=== PATIENT | male | born 1990 | race Hispanic/Latino ===

== ENCOUNTER 2018-01-31 22:49 | Emergency (ER) | payer SELFPAY ==
[2018-01-31] MEDS ORDERED: NA CHLORIDE 0.9% 1,000 ML ONE (23:45)
[2018-02-01 00:01] LABS: Absolute Lymphocytes (CBC) 3.8 K/uL (0.7-4.9); Absolute Monocytes 0.8 K/uL (0.1-1.3); Absolute Neutrophil 3.6 K/uL (1.8-8.0); Eosinophils % 3.9 % (0-4.4); Hematocrit 43.5 % (39.6-49.0); Lymphocytes % 44.6 % (15.3-44.8); MCH 30.1 pg (27.0-35.0); MCV 90.1 fL (80-100); MPV 9.7 fL (7.6-11.3); Monocytes % 9.1 % (3.3-12.3); RBC Red Blood Cell Count 4.83 M/uL (4.33-5.43)
[2018-02-01 00:10] LABS: Bicarbonate 28 mEq/L (21-31); Glucose Level 115 mg/dL (65-120); Lipase 29 U/L (22-51); Potassium 3.7 mEq/L (3.6-5.0); Sodium Level 138 mEq/L (135-145)
[2018-02-01 00:17] LABS: ALT/SGPT 58 IU/L (10-60); AST/SGOT 45 IU/L (10-42); Albumin 4.3 g/dL (3.2-5.5); Alkaline Phosphatase 55 IU/L (42-121); Amylase Level 88 U/L (28-100); BUN Blood Urea Nitrogen 11 mg/dL (6-20); Bilirubin Direct < 0.1 mg/dL (0-0.2); Bilirubin Total 0.4 mg/dL (0.3-1.2); Glomerular Filtration Rate > 90 mL/min (=/>90); Protein, Total 7.7 g/dL (6.0-8.3)
[2018-02-01 01:29] LABS: Urine Bacteria <20 /HPF (NONE SEEN); Urine Culture Reflex Order NOT NEEDED; Urine RBC <5 /HPF (NONE SEEN)
--- NOTE | 2018-02-01 01:41 | ER ---
Nurse's Notes [facility] Name: Sandra Gutierrez Age: 27 yrs Sex: Male : 1990 Arrival Date: 01/31/2018 Time: 22:52 Bed 6 Private MD: Diagnosis: Left flank pain Presentation: 01/31 22:50 Presenting complaint: Patient states: that for the past 2 days he has been having left fc sided abd pain but denies any nausea, vomiting or diarrhea. Last bm was this am. Transition of care: patient was not received from another setting of care. Onset of symptoms was January 29, 2018. Care prior to arrival: None. 22:50 Method Of Arrival: Ambulatory fc 22:50 Acuity: CANDICE 3 fc Historical: - Allergies: 23:05 No Known Allergies; fc - Home Meds: 23:05 None [Active]; fc - PMHx: 23:05 None; fc - PSHx: 23:05 Hernia repair; fc - Immunization history:: Last tetanus immunization: up to date. - Social history:: Smoking status: Patient/guardian denies using tobacco, Patient/guardian denies using alcohol, street drugs. Screenin:50 Abuse screen: Denies threats or abuse. Nutritional screening: No deficits noted. fc Tuberculosis screening: No symptoms or risk factors identified. Fall Risk None identified. Assessment: 23:15 General: Appears in no apparent distress. Behavior is calm, cooperative. Pain: bb Complains of pain in abdomen. Neuro: Level of Consciousness is awake, alert, obeys commands, Oriented to person, place, time, situation. Cardiovascular: Heart tones S1 S2 present. Respiratory: Respiratory effort is even, unlabored. GI: Abdomen is non-distended, Bowel sounds present X 4 quads. Abd is soft X 4 quads Abdomen is tender to palpation in left upper quadrant. Derm: Skin is pink, warm \T\ dry. Musculoskeletal: Circulation, motion, and sensation intact. 02/01 00:44 Reassessment: No changes from previously documented assessment. Patient is alert, bb oriented x 3, equal unlabored respirations, skin warm/dry/pink. pt awaiting CT scan family at bedside. 01:30 Reassessment: Patient and/or family updated on plan of care and expected duration. Pain bb level reassessed. pt states his pain is coming back now 05/10 Dr Palmer notified new orders received pt medicated see DEC. 01:55 Reassessment: Patient is alert, oriented x 3, equal unlabored respirations, skin bb warm/dry/pink. pt states pain is gone now verbalized understanding of and agrees to plan of care discharge instructions given pt assisted to exit via wheelchair accompanied by spouse. Vital Signs: 01/31 22:50 BP 123 / 76; Pulse 66; Resp 18; Temp 97.6(O); Pulse Ox 97% on R/A; Weight 83.91 kg (R); fc Height 5 ft. 4 in. (162.56 cm) (R); Pain 5/10; 23:56 BP 116 / 65; Pulse 60; Resp 16; Pulse Ox 98% on R/A; aa1 02/01 00:45 BP 100 / 65; Pulse 64; Resp 18; Pulse Ox 99% on R/A; bb 01:43 BP 118 / 61; Pulse 64; Resp 18; Pulse Ox 98% on R/A; Pain 7/10; bb 01:56 Pain 0/10; bb 01/31 22:50 Body Mass Index 31.75 (83.91 kg, 162.56 cm) ED Course: 01/31 22:50 Arm band placed on Patient placed in an exam room, on a stretcher. fc 22:50 Patient has correct armband on for positive identification. Bed in low position. Call fc light in reach. Pulse ox on. NIBP on. 22:50 No provider procedures requiring assistance completed. fc 22:52 Patient arrived in ED. al2 23:04 Triage completed. fc 23:04 Nestor Palmer MD is Attending Physician. pkl 23:07 Sammi Gurrola, RN is Primary Nurse. aa1 02/01 00:56 CT Stone Protocol In Process Unspecified. EDMS 01:40 Harsh Hardy MD is Referral Physician. pkl 01:56 IV discontinued, intact, bleeding controlled, No redness/swelling at site. Pressure bb dressing applied. Administered Medications: 01/31 23:27 Drug: NS 0.9% 1000 ml Route: IV; Rate: 1000 ml; Site: right antecubital; bb 02/01 00:44 Follow up: IV Status: Completed infusion; IV Intake: 1000ml bb 01:42 Drug: morphine 4 mg Route: IVP; Site: right antecubital; bb 01:54 Follow up: Response: Pain is decreased bb 01:42 Drug: Zofran 4 mg Route: IVP; Site: right antecubital; bb 01:55 Follow up: Response: No adverse reaction bb Intake: 00:44 IV: 1000ml; Total: 1000ml. bb Outcome: 01:41 Discharge ordered by . pksantos 01:56 Discharged to home via wheelchair, with family. bb 01:56 Condition: stable 01:56 Discharge instructions given to patient, Instructed on discharge instructions, follow up and referral plans. medication usage, Demonstrated understanding of instructions, follow-up care, medications, Prescriptions given X 1. 02:07 Patient left the ED. bp Signatures: Dispatcher [employer] EDMS Sammi Gurrola RN RN aa1 Nestor Palmer MD MD pkl Chretien, Felicia, RN RN fc Ballard, Brenda, RN RN bb Peltier, Brian, RN RN bp Love, Angelica al2 Corrections: (The following items were deleted from the chart) 01/31 23:15 22:50 Presenting complaint: Patient states: that for the past 2 days he has been having fc right sided abd pain but denies any nausea, vomiting or diarrhea. Last bm was this am. fc
--- NOTE | 2018-02-01 01:41 | EDPHYS ---
Physician Documentation [facility] Name: Sandra Gutierrez Age: 27 yrs Sex: Male : 1990 Arrival Date: 01/31/2018 Time: 22:52 Bed 6 Private MD: ED Physician Nestor Palmer HPI: 01/31 23:16 This 27 yrs old Male presents to ER via Ambulatory with complaints of pkl Abdominal Pain. 23:16 The patient complains of pain in the left flank. The pain radiates to the left lower pkl quadrant. Onset: The symptoms/episode began/occurred 2 day(s) ago. Historical: - Allergies: 23:05 No Known Allergies; fc - Home Meds: 23:05 None [Active]; fc - PMHx: 23:05 None; fc - PSHx: 23:05 Hernia repair; fc - Immunization history:: Last tetanus immunization: up to date. - Social history:: Smoking status: Patient/guardian denies using tobacco, Patient/guardian denies using alcohol, street drugs. ROS: 23:16 Eyes: Negative for injury, pain, redness, and discharge, ENT: Negative for injury, pkl pain, and discharge, Neck: Negative for injury, pain, and swelling, Cardiovascular: Negative for chest pain, palpitations, and edema, Respiratory: Negative for shortness of breath, cough, wheezing, and pleuritic chest pain. 23:16 Abdomen/GI: Positive for abdominal pain, of the left lower quadrant. 23:16 Back: Positive for flank pain, on the left. 23:16 : Negative for urinary symptoms. 23:16 MS/extremity: Negative for acute changes. 23:16 Skin: Negative for rash. 23:16 Neuro: Negative for altered mental status. Exam: 23:16 Head/Face: Normocephalic, atraumatic. Eyes: Pupils equal round and reactive to light, pkl extra-ocular motions intact. Lids and lashes normal. Conjunctiva and sclera are non-icteric and not injected. Cornea within normal limits. Periorbital areas with no swelling, redness, or edema. ENT: Nares patent. No nasal discharge, no septal abnormalities noted. Tympanic membranes are normal and external auditory canals are clear. Oropharynx with no redness, swelling, or masses, exudates, or evidence of obstruction, uvula midline. Mucous membranes moist. Neck: Trachea midline, no thyromegaly or masses palpated, and no cervical lymphadenopathy. Supple, full range of motion without nuchal rigidity, or vertebral point tenderness. No Meningismus. Chest/axilla: Normal chest wall appearance and motion. Nontender with no deformity. No lesions are appreciated. Cardiovascular: Regular rate and rhythm with a normal S1 and S2. No gallops, murmurs, or rubs. Normal PMI, no JVD. No pulse deficits. Respiratory: Lungs have equal breath sounds bilaterally, clear to auscultation and percussion. No rales, rhonchi or wheezes noted. No increased work of breathing, no retractions or nasal flaring. Abdomen/GI: Soft, non-tender, with normal bowel sounds. No distension or tympany. No guarding or rebound. No evidence of tenderness throughout. 23:16 Back: pain, that is mild, of the left flank. 23:16 : Exam negative for acute changes. 23:16 Musculoskeletal/extremity: Exam is negative for acute changes. 23:16 Skin: Exam negative for rash. 23:16 Neuro: Orientation: is normal, Mentation: is normal, Cranial nerves: grossly normal, Motor: is normal. Vital Signs: 22:50 BP 123 / 76; Pulse 66; Resp 18; Temp 97.6(O); Pulse Ox 97% on R/A; Weight 83.91 kg (R); fc Height 5 ft. 4 in. (162.56 cm) (R); Pain 5/10; 23:56 BP 116 / 65; Pulse 60; Resp 16; Pulse Ox 98% on R/A; aa1 02/01 00:45 BP 100 / 65; Pulse 64; Resp 18; Pulse Ox 99% on R/A; bb 01:43 BP 118 / 61; Pulse 64; Resp 18; Pulse Ox 98% on R/A; Pain 7/10; bb 01:56 Pain 0/10; bb 01/31 22:50 Body Mass Index 31.75 (83.91 kg, 162.56 cm) fc MDM: 01/31 23:04 Patient medically screened. pkl 02/01 01:39 Data reviewed: vital signs, nurses notes, lab test result(s), radiologic studies, CT pkl scan. 01/31 23:16 Order name: Amylase, Serum; Complete Time: 00:33 pkl 01/31 23:16 Order name: Basic Metabolic Panel; Complete Time: 00:33 pkl 01/31 23:16 Order name: CBC with Diff; Complete Time: 00:33 pkl 01/31 23:16 Order name: Hepatic Function; Complete Time: 00:33 pkl 01/31 23:16 Order name: Lipase; Complete Time: 00:33 pkl 01/31 23:16 Order name: Urine Microscopic Only; Complete Time: 01:36 pkl 01/31 23:16 Order name: IV Saline Lock; Complete Time: 23:27 pkl 01/31 23:16 Order name: Labs collected and sent; Complete Time: 23:27 pkl 02/01 00:34 Order name: CT Stone Protocol pkl 02/01 00:49 Order name: Urine Dipstick--Ancillary (enter results); Complete Time: 02:24 em1 01/31 23:16 Order name: Urine Dipstick-Ancillary (obtain specimen); Complete Time: 00:44 pkl Administered Medications: 01/31 23:27 Drug: NS 0.9% 1000 ml Route: IV; Rate: 1000 ml; Site: right antecubital; bb 02/01 00:44 Follow up: IV Status: Completed infusion; IV Intake: 1000ml bb 01:42 Drug: morphine 4 mg Route: IVP; Site: right antecubital; bb 01:54 Follow up: Response: Pain is decreased bb 01:42 Drug: Zofran 4 mg Route: IVP; Site: right antecubital; bb 01:55 Follow up: Response: No adverse reaction bb Disposition: 02/01/18 01:41 Discharged to Home. Impression: Left flank pain. - Condition is Stable. - Prescriptions for Ultram 50 mg Oral Tablet - take 1 tablet by ORAL route every 8 hours As needed; 30 tablet. - Medication Reconciliation Form, Thank You Letter, Antibiotic Education, Prescription Opioid Use, Work release form form. - Follow up: Harsh Hardy MD; When: 2 - 3 days; Reason: Re-evaluation by your physician. - Problem is new. - Symptoms have improved. Signatures: Dispatcher [employer] EDMS Nestor Palmer MD MD pkElizabeth Evans RN RN Mariana Cooper RN RN bb Hung Brock, RN RN bp Corrections: (The following items were deleted from the chart) 00:04 01/31 23:16 Creatinine for Radiology+C.DARINEL.RODNEY ordered. EDMS EDMS
[2018-02-01 01:42] LABS: Urine Blood TRACE (NEG); Urine Glucose NEGATIVE (NEG); Urine Protein NEGATIVE (NEG); Urine Specific Gravity 1.025 (1.005-1.030)
[2018-02-01] MEDS ORDERED: ONDANSETRON 4 MG/2 ML VIAL ONE (01:55)
[2018-02-01] MEDS ORDERED: MORPHINE 4 MG/ML SYR ONE (01:55)
--- NOTE | 2018-02-01 07:43 | RAD REPORT ---
EXAM DESCRIPTION: CT - Stone Protocol - 02/01/2018 2:27 am CLINICAL HISTORY: Abdominal pain. Left-sided pain x2 days COMPARISON: None. TECHNIQUE: Computed axial tomography of the abdomen pelvis was obtained without oral or IV contrast. Lack of IV and oral contrast limits evaluation of solid organs, bowel, and vessels. Coronal reformat don images were obtained and reviewed. A preliminary report was generated by [employer] and r larry prior to this dictation All CT scans are performed using dose optimization technique as appropriate and may include automated exposure control or mA/KV adjustment according to patient size. FINDINGS: A renal calculus is not seen. An ureteral calculus is not noted. A bladder calculus is not present. The wall of the bladder appears thickened The liver has a diminished density consistent with fatty infiltration. An area of increased density w ithin the medial segment of the left lobe probably represents focal fatty sparing . Spleen, pancreas and adrenals appear grossly normal There is no evidence of diverticulitis. The appendix appears normal. Postsurgical changes of a left i nguinal hernia repair are seen IMPRESSION: Negative for a genitourinary calculus Apparent thickening of the wall of bladder may simply be secondary to incomplete distention. Cystitis can also result in this appearance
== END 2018-02-01 02:07 | disposition home or self-care (01) ==
LOC: ER 22:49
DX: R10.9 Unspecified abdominal pain (principal)
CPT/HCPCS: 36415; 74176; 76377; 80048; 80076; 81003; 81015; 82150; 83690; 85025; 96361; 96374; 96375; 99284; J2405; J7030

== ENCOUNTER 2018-08-10 13:22 | Emergency (ER) | payer SELFPAY ==
[2018-08-10] MEDS ORDERED: IBUPROFEN 400 MG TAB ONE (14:44)
--- NOTE | 2018-08-10 15:48 | RAD REPORT ---
EXAM DESCRIPTION: RAD - Ankle Left 3 View - 08/10/2018 3:30 pm CLINICAL HISTORY: PAIN COMPARISON: No comparisons FINDINGS: No fracture or dislocation seen. No aggressive marrow pattern.
--- NOTE | 2018-08-10 15:57 | ER ---
Nurse's Notes [facility] Name: Sandra Gutierrez Age: 27 yrs Sex: Male : 1990 Arrival Date: 08/10/2018 Time: 13:25 Bed 10 Private MD: Diagnosis: Pain in ankle and joints of foot Presentation: 08/10 13:26 Presenting complaint: Patient states: Left ankle pain since yesterday. Denies recent aj1 injury. States that he broke that ankle 5 years ago, and every so often it starts hurting him. Transition of care: patient was not received from another setting of care. Onset of symptoms was August 09, 2018. Risk Assessment: Do you want to hurt yourself or someone else? Patient reports no desire to harm self or others. Initial Sepsis Screen: Does the patient meet any 2 criteria? No. Patient's initial sepsis screen is negative. Does the patient have a suspected source of infection? No. Patient's initial sepsis screen is negative. Care prior to arrival: None. 13:26 Method Of Arrival: Ambulatory [facility] 13:26 Acuity: CANDICE 4 aj1 Triage Assessment: 13:29 General: Appears in no apparent distress. comfortable, Behavior is calm, cooperative, aj1 appropriate for age. Pain: Complains of pain in left ankle Pain currently is 7 out of 10 on a pain scale. Neuro: Level of Consciousness is awake, alert, obeys commands. Cardiovascular: Patient's skin is warm and dry. Respiratory: Airway is patent Respiratory effort is even, unlabored, Respiratory pattern is regular, symmetrical. Historical: - Allergies: 13:29 No Known Allergies; aj1 - Home Meds: 13:29 None [Active]; aj1 - PMHx: 13:29 None; aj1 - PSHx: 13:29 Hernia repair; aj1 - Immunization history:: Flu vaccine is not up to date. - Social history:: Smoking status: Patient/guardian denies using tobacco. - Ebola Screening: : Patient denies travel to an Ebola-affected area in the 21 days before illness onset. Screenin:45 Abuse screen: Denies threats or abuse. Denies injuries from another. Nutritional hj screening: No deficits noted. Tuberculosis screening: No symptoms or risk factors identified. Fall Risk None identified. Vital Signs: 13:29 BP 134 / 81; Pulse 85; Resp 18; Temp 97.8; Pulse Ox 98% on R/A; Weight 86.18 kg (R); aj1 Height 5 ft. 5 in. (165.10 cm) (R); Pain 7/10; 13:29 Body Mass Index 31.62 (86.18 kg, 165.10 cm) aj1 ED Course: 13:25 Patient arrived in ED. as 13:29 Triage completed. aj1 13:29 Arm band placed on Patient placed in waiting room, Patient notified of wait time. aj1 14:23 Mahogany Dominguez FNP-C is PHCP. kb 14:23 Reggie Gonsalez MD is Attending Physician. kb 14:23 PHCP role handed off by Mahogany Dominguez FNP-C cp 14:23 Manjeet Brown PA is PHCP. cp 14:30 Blair Garcia, RN is Primary Nurse. hj 14:45 Patient has correct armband on for positive identification. Bed in low position. Call hj light in reach. Side rails up X 1. 15:29 X-ray completed. Portable x-ray completed in exam room. Patient tolerated procedure mh1 well. 15:30 XRAY Ankle LEFT 3 view In Process Unspecified. EDMS 16:04 No provider procedures requiring assistance completed. Patient did not have IV access hj during this emergency room visit. Administered Medications: 14:32 Drug: Ibuprofen 800 mg Route: PO; hj 15:14 Follow up: Response: No adverse reaction; Pain is decreased hj Outcome: 15:57 Discharge ordered by MD. cp 16:05 Discharged to home ambulatory, with crutches, with family. hj 16:05 Condition: stable 16:05 Discharge instructions given to patient, family, Instructed on discharge instructions, follow up and referral plans. medication usage, Demonstrated understanding of instructions, follow-up care, medications, Prescriptions given X 1. 16:13 Patient left the ED. hj Signatures: Dispatcher [employer] EDMS Mahogany Dominguez FNP-C FNP-Ckb Johnson, Angela RN RN 1 Patricia Marrero 1 Constance Lopez as Blair Garcia RN RN Manjeet Brown PA PA cp
--- NOTE | 2018-08-10 15:57 | EDPHYS ---
Physician Documentation [facility] Name: Sandra Gutierrez Age: 27 yrs Sex: Male : 1990 Arrival Date: 08/10/2018 Time: 13:25 Bed 10 Private MD: ED Physician Reggie Gonsalez HPI: 08/10 14:35 This 27 yrs old Male presents to ER via Ambulatory with complaints of Ankle cp Pain. 14:35 The patient presents with pain, that is acute, tenderness. The complaints affect the cp left ankle. Onset: The symptoms/episode began/occurred yesterday. Associated signs and symptoms: Pertinent negatives: calf tenderness, fever, warmth, known injury. 14:35 Severity of symptoms: in the emergency department the symptoms are unchanged, despite cp home interventions. Historical: - Allergies: 13:29 No Known Allergies; aj1 - Home Meds: 13:29 None [Active]; aj1 - PMHx: 13:29 None; aj1 - PSHx: 13:29 Hernia repair; aj1 - Immunization history:: Flu vaccine is not up to date. - Social history:: Smoking status: Patient/guardian denies using tobacco. - Ebola Screening: : Patient denies travel to an Ebola-affected area in the 21 days before illness onset. ROS: 14:40 Constitutional: Negative for body aches, chills, fever, poor PO intake. cp 14:40 Eyes: Negative for injury, pain, redness, and discharge. cp 14:40 ENT: Negative for drainage from ear(s), ear pain, sore throat, difficulty swallowing, difficulty handling secretions. 14:40 Cardiovascular: Negative for chest pain, edema, palpitations. 14:40 Respiratory: Negative for cough, shortness of breath, wheezing. 14:40 Abdomen/GI: Negative for abdominal pain, nausea, vomiting, and diarrhea. 14:40 MS/extremity: Positive for pain, tenderness, of the lateral aspect left ankle, Negative for injury or acute deformity, decreased range of motion, paresthesias. 14:40 Skin: Negative for cellulitis, rash. 14:40 All other systems are negative. Exam: 14:45 Constitutional: The patient appears in no acute distress, alert, awake, well developed, cp well nourished. 14:45 Head/Face: Normocephalic, atraumatic. cp 14:45 Eyes: Periorbital structures: appear normal, Conjunctiva: normal, no exudate, no injection, Lids and lashes: appear normal, bilaterally. 14:45 ENT: External ear(s): are unremarkable, Nose: is normal, Mouth: is normal, Posterior pharynx: is normal, airway is patent. 14:45 Chest/axilla: Inspection: normal. 14:45 Cardiovascular: Rate: normal. 14:45 Respiratory: the patient does not display signs of respiratory distress, Respirations: normal, no use of accessory muscles, no retractions, no splinting, no tachypnea. 14:45 Abdomen/GI: Exam negative for discomfort, distension, guarding, Inspection: abdomen appears normal. 14:45 Musculoskeletal/extremity: Perfusion: the extremity is normally perfused throughout, Sensation intact. Joints: All joints are normal except the left ankle displays pain at rest, tenderness, lateral aspect left ankle. 14:45 Skin: cellulitis, is not appreciated, no rash present. Vital Signs: 13:29 BP 134 / 81; Pulse 85; Resp 18; Temp 97.8; Pulse Ox 98% on R/A; Weight 86.18 kg (R); aj1 Height 5 ft. 5 in. (165.10 cm) (R); Pain 7/10; 13:29 Body Mass Index 31.62 (86.18 kg, 165.10 cm) aj1 MDM: 14:27 Patient medically screened. cp 15:00 Differential diagnosis: fracture, sprain, gout, cellulitis. cp 15:56 Data reviewed: vital signs, nurses notes, radiologic studies, plain films. cp 15:56 Test interpretation: by ED physician or midlevel provider: plain radiologic studies. cp Counseling: I had a detailed discussion with the patient and/or guardian regarding: the historical points, exam findings, and any diagnostic results supporting the discharge/admit diagnosis, radiology results, to return to the emergency department if symptoms worsen or persist or if there are any questions or concerns that arise at home. Response to treatment: the patient's symptoms have mildly improved after treatment, and as a result, I will discharge patient. 08/10 14:31 Order name: XRAY Ankle LEFT 3 view; Complete Time: 15:53 cp 08/10 15:56 Order name: Crutches; Complete Time: 16:03 cp 08/10 15:56 Order name: Aircast Ankle Splint; Complete Time: 16:03 cp Administered Medications: 14:32 Drug: Ibuprofen 800 mg Route: PO; hj 15:14 Follow up: Response: No adverse reaction; Pain is decreased hj Disposition: 08/10/18 15:57 Discharged to Home. Impression: Pain in ankle and joints of foot. - Condition is Stable. - Discharge Instructions: Ankle Pain. - Prescriptions for Anaprox DS 550 mg Oral Tablet - take 1 tablet by ORAL route every 12 hours As needed; 20 tablet. - Work release form, Medication Reconciliation Form, Thank You Letter, Antibiotic Education, Prescription Opioid Use form. - Follow up: Private Physician; When: 2 - 3 days; Reason: Recheck today's complaints. - Problem is new. - Symptoms have improved. Addendum: 08/14/2018 00:50 Co-signature as Attending Physician, Reggie Gonsalez MD. g s Signatures: Dispatcher [employer] EDMS Claire Schroeder RN RN aj1 Blair Garcia RN RN Manjeet Brown PA PA cp Reggie Gonsalez MD MD Corrections: (The following items were deleted from the chart) 08/10 16:13 15:57 08/10/2018 15:57 Discharged to Home. Impression: Pain in ankle and joints of hj foot. Condition is Stable. Forms are Medication Reconciliation Form, Thank You Letter, Antibiotic Education, Prescription Opioid Use. Follow up: Private Physician; When: 2 - 3 days; Reason: Recheck today's complaints. Problem is new. Symptoms have improved. cp 22:35 08/09 14:35 This 27 yrs old Male presents to ER via Ambulatory with complaints cp of Ankle Pain. cp
== END 2018-08-10 16:13 | disposition home or self-care (01) ==
LOC: ER 13:22
DX: M25.572 Pain in left ankle and joints of left foot (principal)
CPT/HCPCS: 99283

== ENCOUNTER 2018-10-10 11:55 | Emergency (ER) | payer SELFPAY ==
--- NOTE | 2018-10-10 13:46 | ER ---
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 Transition of care: patient was not received from another setting of care. Onset of symptoms was October 10, 2018. Risk Assessment: Do you want to hurt yourself or someone else? Patient reports no desire to harm self or others. Initial Sepsis Screen: Does the patient meet any 2 criteria? No. Patient's initial sepsis screen is negative. Does the patient have a suspected source of infection? No. Patient's initial sepsis screen is negative. Care prior to arrival: None. 12:41 Method Of Arrival: Ambulatory 12:41 Acuity: CANDICE 4 hj Triage Assessment: 12:43 General: Appears in no apparent distress. uncomfortable, Behavior is calm, cooperative, hj appropriate for age. Historical: - Allergies: 12:42 No Known Allergies; hj - Home Meds: 12:42 None [Active]; hj - PMHx: 12:42 None; hj - Immunization history:: Adult Immunizations up to date. - Social history:: Smoking status: Patient/guardian denies using tobacco, Patient uses alcohol, occasionally. - Ebola Screening: : Patient negative for fever greater than or equal to 101.5 degrees Fahrenheit, and additional compatible Ebola Virus Disease symptoms Patient denies exposure to infectious person Patient denies travel to an Ebola-affected area in the 21 days before illness onset. Screenin:43 Abuse screen: Denies threats or abuse. Denies injuries from another. Nutritional hj screening: No deficits noted. Tuberculosis screening: No symptoms or risk factors identified. Fall Risk None identified. Assessment: 12:43 Pain: Complains of pain in throat. Respiratory: Airway is patent Respiratory effort is hj even, unlabored, Respiratory pattern is regular, symmetrical, Breath sounds are clear. EENT: Throat. Vital Signs: 12:43 BP 131 / 74; Pulse 75; Resp 18; Temp 97.7(TE); Pulse Ox 100% on R/A; Weight 83.91 kg; hj Height 5 ft. 5 in. (165.10 cm); Pain 6/10; 12:43 Body Mass Index 30.78 (83.91 kg, 165.10 cm) ED Course: 11:57 Patient arrived in ED. as 12:42 Triage completed. hj 12:43 Arm band placed on left wrist. hj 12:43 Patient has correct armband on for positive identification. Bed in low position. Call light in reach. Side rails up X 1. 13:08 Karma Thomas, RN is Primary Nurse. iw 13:08 Reggie Gonsalez MD is Attending Physician. gs 13:52 No provider procedures requiring assistance completed. Patient did not have IV access iw during this emergency room visit. Administered Medications: No medications were administered Outcome: 13:45 Discharge ordered by . gs 13:52 Discharged to home ambulatory. iw 13:52 Condition: good 13:52 Discharge instructions given to patient, Instructed on discharge instructions, follow up and referral plans. medication usage, Demonstrated understanding of instructions, follow-up care, medications, Prescriptions given X 1. 13:53 Patient left the ED. 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 5 in.; BMI: 30.7; Pain 6/10; hj
--- NOTE | 2018-10-10 13:46 | EDPHYS ---
Physician Documentation [facility] Name: Sandra Gutierrez Age: 27 yrs Sex: Male : 1990 Arrival Date: 10/10/2018 Time: 11:57 Bed 10 Private MD: ED Physician Reggie Gonsalez HPI: 10/10 13:28 This 27 yrs old Male presents to ER via Ambulatory with complaints of Sore gs Throat, Cough. 13:28 The patient presents with sore throat. The patient describes throat pain as scratchy. gs Onset: The symptoms/episode began/occurred 4 day(s) ago. Severity of symptoms: At their worst the symptoms were moderate, in the emergency department the symptoms are unchanged. Associated signs and symptoms: Pertinent positives: cough, fever. The patient has experienced similar episodes in the past, a few times. The patient has not recently seen a physician. Historical: - Allergies: 12:42 No Known Allergies; hj - Home Meds: 12:42 None [Active]; hj - PMHx: 12:42 None; hj - Immunization history:: Adult Immunizations up to date. - Social history:: Smoking status: Patient/guardian denies using tobacco, Patient uses alcohol, occasionally. - Ebola Screening: : Patient negative for fever greater than or equal to 101.5 degrees Fahrenheit, and additional compatible Ebola Virus Disease symptoms Patient denies exposure to infectious person Patient denies travel to an Ebola-affected area in the 21 days before illness onset. ROS: 13:28 All other systems are negative. gs Exam: 13:28 Head/Face: Normocephalic, atraumatic. Eyes: Pupils equal round and reactive to light, gs extra-ocular motions intact. Lids and lashes normal. Conjunctiva and sclera are non-icteric and not injected. Cornea within normal limits. Periorbital areas with no swelling, redness, or edema. Neck: Trachea midline, no thyromegaly or masses palpated, and no cervical lymphadenopathy. Supple, full range of motion without nuchal rigidity, or vertebral point tenderness. No Meningismus. Chest/axilla: Normal chest wall appearance and motion. Nontender with no deformity. No lesions are appreciated. Cardiovascular: Regular rate and rhythm with a normal S1 and S2. No gallops, murmurs, or rubs. Normal PMI, no JVD. No pulse deficits. Respiratory: Lungs have equal breath sounds bilaterally, clear to auscultation and percussion. No rales, rhonchi or wheezes noted. No increased work of breathing, no retractions or nasal flaring. Abdomen/GI: Soft, non-tender, with normal bowel sounds. No distension or tympany. No guarding or rebound. No evidence of tenderness throughout. Back: No spinal tenderness. No costovertebral tenderness. Full range of motion. Skin: Warm, dry with normal turgor. Normal color with no rashes, no lesions, and no evidence of cellulitis. MS/ Extremity: Pulses equal, no cyanosis. Neurovascular intact. Full, normal range of motion. Neuro: Awake and alert, GCS 15, oriented to person, place, time, and situation. Cranial nerves II-XII grossly intact. Motor strength 5/5 in all extremities. Sensory grossly intact. Cerebellar exam normal. Normal gait. 13:28 Constitutional: The patient appears alert, awake. 13:28 ENT: Posterior pharynx: Tonsils: are normal in appearance, erythema, that is mild. Vital Signs: 12:43 BP 131 / 74; Pulse 75; Resp 18; Temp 97.7(TE); Pulse Ox 100% on R/A; Weight 83.91 kg; hj Height 5 ft. 5 in. (165.10 cm); Pain 6/10; 12:43 Body Mass Index 30.78 (83.91 kg, 165.10 cm) MDM: 13:19 Patient medically screened. 13:28 Differential diagnosis: group A strep tonsillitis, pharyngitis, viral syndrome. Data reviewed: vital signs, nurses notes. Response to treatment: the patient's symptoms have markedly improved after treatment, and as a result, I will discharge patient. 10/10 12:45 Order name: Flu; Complete Time: 13:45 10/10 12:45 Order name: Strep; Complete Time: 13:45 10/10 13:40 Order name: Throat Culture EDMS Administered Medications: No medications were administered Disposition: 10/10/18 13:45 Discharged to Home. Impression: Acute upper respiratory infection, unspecified. - Condition is Stable. - Discharge Instructions: Upper Respiratory Infection, Adult. - Prescriptions for Zyrtec 10 mg Oral Tablet - take 1 tablet by ORAL route once daily As needed; 20 tablet. - Work release form, Medication Reconciliation Form, Thank You Letter, Antibiotic Education, Prescription Opioid Use form. - Follow up: Private Physician; When: 2 - 3 days; Reason: Re-evaluation by your physician. Signatures: Dispatcher [employer] Karma Hooker RN RN iw Joaquin, Henry, RN RN hj Starr, Gregory, MD MD gs Corrections: (The following items were deleted from the chart) 13:53 13:45 10/10/2018 13:45 Discharged to Home. Impression: Acute upper respiratory iw infection, unspecified. Condition is Stable. Forms are Medication Reconciliation Form, Thank You Letter, Antibiotic Education, Prescription Opioid Use. Follow up: Private Physician; When: 2 - 3 days; Reason: Re-evaluation by your physician. gs
== END 2018-10-10 13:53 | disposition home or self-care (01) ==
LOC: ER 11:55
DX: J06.9 Acute upper respiratory infection, unspecified (principal)
CPT/HCPCS: 87070; 87081; 87804; 99282

== ENCOUNTER 2019-02-15 08:03 | Emergency (ER) | payer SELFPAY ==
[2019-02-15] MEDS ORDERED: MEPERIDINE HCL 25 MG/0.5 ML ONE (08:36)
[2019-02-15] MEDS ORDERED: DEXAMETHASONE 10 MG/ML VIAL ONE (08:36)
--- NOTE | 2019-02-15 09:04 | EDPHYS ---
Physician Documentation [facility] Name: Sandra Gutierrez Age: 28 yrs Sex: Male : 1990 Arrival Date: 02/15/2019 Time: 08:05 Bed 6 Private MD: None, None ED Physician Dallas Fitzpatrick HPI: 02/15 08:23 This 28 yrs old Male presents to ER via Ambulatory with complaints of Back rn Pain, Neck Problem. 08:23 The patient presents with pain that is acute. The symptoms are located in the posterior rn cervical area, left trapezius, left scapular area and left subscapular area. Onset: The symptoms/episode began/occurred 2 day(s) ago. The pain does not radiate. Associated signs and symptoms: Pertinent negatives: abdominal pain, chest pain, dysuria, fever, hematuria, incontinence, nausea, numbness, tingling, urinary retention, vomiting, weakness. Modifying factors: The patient symptoms are alleviated by heat application, remaining still, the patient symptoms are aggravated by any movement. Severity of symptoms: At their worst the symptoms were mild, in the emergency department the symptoms are unchanged. The patient has not experienced similar symptoms in the past. Reports left neck pain with movement, also involves left trapezius and left supscapular area, no trauma, no chest pain/sob/abd pain/vomiting/diarrhea. NO bowel/bladder issues, no weakness. NO hx of cardiac problems. . Historical: - Allergies: 08:14 No Known Allergies; ss - Home Meds: 08:14 None [Active]; ss - PMHx: 08:14 None; ss - PSHx: 08:14 Hernia repair; ss - Immunization history:: Adult Immunizations up to date. - Social history:: Smoking status: Patient/guardian denies using tobacco. - Ebola Screening: : Patient denies exposure to infectious person Patient denies travel to an Ebola-affected area in the 21 days before illness onset. - Family history:: not pertinent. - Hospitalizations: : No recent hospitalization is reported. ROS: 08:23 Constitutional: Negative for fever, chills, and weight loss, Eyes: Negative for injury, rn pain, redness, and discharge, Neck: Negative for injury or swelling, + left neck pain Cardiovascular: Negative for chest pain, palpitations, and edema, Respiratory: Negative for shortness of breath, cough, wheezing, and pleuritic chest pain, Abdomen/GI: Negative for abdominal pain, nausea, vomiting, diarrhea, and constipation, Back: Negative for injury, + upper back pain MS/Extremity: Negative for injury and deformity, Skin: Negative for injury, rash, and discoloration, Neuro: Negative for headache, weakness, numbness, tingling, and seizure. Exam: 08:23 Constitutional: This is a well developed, well nourished patient who is awake, alert, rn and in no acute distress. Ambulatory to bathroom without difficulty. Head/Face: Normocephalic, atraumatic. Eyes: Pupils equal round and reactive to light, extra-ocular motions intact. Lids and lashes normal. Conjunctiva and sclera are non-icteric and not injected. Cornea within normal limits. Periorbital areas with no swelling, redness, or edema. Neck: Trachea midline, no thyromegaly or masses palpated, and no cervical lymphadenopathy. No Meningismus. No vertebral tenderness. + tenderness along left SCM and trapezius. Respiratory: No increased work of breathing, no retractions or nasal flaring. Abdomen/GI: soft, non-tender Back: No spinal tenderness. + tenderness over trapezius and medial to left scapula. MS/ Extremity: Pulses equal, no cyanosis. Neurovascular intact. Full, normal range of motion. Equal circumference. Neuro: Awake and alert, GCS 15, oriented to person, place, time, and situation. Cranial nerves II-XII grossly intact. Motor strength 5/5 in all extremities. Sensory grossly intact. Cerebellar exam normal. Normal gait. 08:50 ECG was reviewed by the Attending Physician. rn Vital Signs: 08:15 BP 138 / 90; Pulse 90; Resp 15; Temp 98.0(O); Pulse Ox 99% on R/A; Weight 88.45 kg; ss Height 5 ft. 5 in. (165.10 cm); Pain 8/10; 08:15 Body Mass Index 32.45 (88.45 kg, 165.10 cm) ss MDM: 08:13 Patient medically screened. rn 09:02 Differential diagnosis: arthritis, Fatigue sprain, muscle spasm, torticollis. Data rn reviewed: vital signs, nurses notes, and as a result, I will discharge patient. Counseling: I had a detailed discussion with the patient and/or guardian regarding: the historical points, exam findings, and any diagnostic results supporting the discharge/admit diagnosis, radiology results, the need for outpatient follow up, to return to the emergency department if symptoms worsen or persist or if there are any questions or concerns that arise at home. Special discussion: I discussed with the patient/guardian in detail that at this point there is no indication for admission to the hospital. It is understood, however, that if the symptoms persist or worsen the patient needs to return immediately for re-evaluation. 02/15 08:20 Order name: XRAY Chest (1 view) rn 02/15 08:20 Order name: EKG; Complete Time: 08:20 rn 02/15 08:20 Order name: EKG - Nurse/Tech; Complete Time: 08:36 rn EC:50 Rate is 68 beats/min. Rhythm is regular. QRS [place] is Normal. [place] interval is normal. QRS rn interval is normal. QT interval is normal. No Q waves. T waves are Normal. No ST changes noted. Clinical impression: Normal ECG. Interpreted by me. Reviewed by me. Administered Medications: 08:28 Drug: Decadron 10 mg Route: IM; Site: right deltoid; aa5 09:16 Follow up: Response: No adverse reaction; Pain is decreased aa5 08:29 Drug: Demerol 25 mg Route: IM; Site: left deltoid; aa5 09:16 Follow up: Response: No adverse reaction; Pain is decreased aa5 Disposition: 02/15/19 09:03 Discharged to Home. Impression: Torticollis, Muscle spasm of back. - Condition is Stable. - Discharge Instructions: Muscle Cramps and Spasms, Acute Torticollis, Adult, Back Exercises, [id number]. - Prescriptions for Ultram 50 mg Oral Tablet - take 1 tablet by ORAL route every 6 hours As needed; 20 tablet. Cyclobenzaprine 10 mg Oral Tablet - take 1 tablet by ORAL route every 8 hours As needed; 20 tablet. Medrol (Rickie) 4 mg Oral Tablets, Dose Pack - take 1 tablet by ORAL route as directed - follow package instructions; 1 packet. - Medication Reconciliation Form, Thank You Letter, Antibiotic Education, Prescription Opioid Use, Work release form form. - Follow up: Private Physician; When: As needed; Reason: Recheck today's complaints, Re-evaluation by your physician. - Problem is new. - Symptoms have improved. Signatures: Dispatcher [employer] EDMS Dallas Fitzpatrick MD MD rn Calderon, Audri, RN RN aa5 Becky Sood RN RN ss Corrections: (The following items were deleted from the chart) 08:51 08:50 Rate is 68 beats/min. Rhythm is regular. QRS [place] is Normal. [place] interval is rn normal. QRS interval is normal. QT interval is normal. No Q waves. T waves are Normal. No ST changes noted. Clinical impression: Normal ECG. Interpreted by me. rn 09:17 09:03 02/15/2019 09:03 Discharged to Home. Impression: Torticollis; Muscle spasm of aa5 back. Condition is Stable. Forms are Medication Reconciliation Form, Thank You Letter, Antibiotic Education, Prescription Opioid Use. Follow up: Private Physician; When: As needed; Reason: Recheck today's complaints, Re-evaluation by your physician. Problem is new. Symptoms have improved. rn
--- NOTE | 2019-02-15 09:04 | ER ---
Nurse's Notes [facility] Name: Sandra Gutierrez Age: 28 yrs Sex: Male : 1990 Arrival Date: 02/15/2019 Time: 08:05 Bed 6 Private MD: None, None Diagnosis: Torticollis;Muscle spasm of back Presentation: 02/15 08:13 Presenting complaint: Patient states: L sided neck pain that radiates down L shoulder ss and L upper-mid back area that began two days ago. Denies injury. Pt reports pain is worse when moving head side to side. Transition of care: patient was not received from another setting of care. Onset of symptoms was February 13, 2019. Risk Assessment: Do you want to hurt yourself or someone else? Patient reports no desire to harm self or others. Initial Sepsis Screen: Does the patient meet any 2 criteria? No. Patient's initial sepsis screen is negative. Does the patient have a suspected source of infection? No. Patient's initial sepsis screen is negative. Care prior to arrival: None. 08:13 Method Of Arrival: Ambulatory ss 08:13 Acuity: CANDICE 4 ss Historical: - Allergies: 08:14 No Known Allergies; ss - Home Meds: 08:14 None [Active]; ss - PMHx: 08:14 None; ss - PSHx: 08:14 Hernia repair; ss - Immunization history:: Adult Immunizations up to date. - Social history:: Smoking status: Patient/guardian denies using tobacco. - Ebola Screening: : Patient denies exposure to infectious person Patient denies travel to an Ebola-affected area in the 21 days before illness onset. - Family history:: not pertinent. - Hospitalizations: : No recent hospitalization is reported. Screenin:20 Abuse screen: Denies threats or abuse. Nutritional screening: No deficits noted. aa5 Tuberculosis screening: No symptoms or risk factors identified. Fall Risk None identified. Assessment: 08:20 General: Appears uncomfortable, Behavior is calm, cooperative. Pain: Complains of pain aa5 in left trapezius, left scapular area and left subscapular area Pain radiates to left low back and left mid back Pain currently is 8 out of 10 on a pain scale. Quality of pain is described as sharp, shooting, Pain began 2-3 days ago. Is continuous, Noted to be resistant to movement. Neuro: Level of Consciousness is awake, alert, obeys commands, Oriented to person, place, time, situation. Cardiovascular: Heart tones S1 S2 present Rhythm is regular. Respiratory: Airway is patent Respiratory effort is even, unlabored, Respiratory pattern is regular, symmetrical. GI: No signs and/or symptoms were reported involving the gastrointestinal system. : No signs and/or symptoms were reported regarding the genitourinary system. EENT: No signs and/or symptoms were reported regarding the EENT system. Derm: Skin is pink, warm \T\ dry. Musculoskeletal: Range of motion: intact in all extremities. 09:16 Reassessment: Patient is alert, oriented x 3, equal unlabored respirations, skin aa5 warm/dry/pink. Patient states feeling better. Vital Signs: 08:15 BP 138 / 90; Pulse 90; Resp 15; Temp 98.0(O); Pulse Ox 99% on R/A; Weight 88.45 kg; ss Height 5 ft. 5 in. (165.10 cm); Pain 8/10; 08:15 Body Mass Index 32.45 (88.45 kg, 165.10 cm) ED Course: 08:05 Patient arrived in ED. mr 08:05 None, None is Private Physician. mr 08:11 Ren[facility] Hills [facility]. snw 08:11 Dallas Fitzpatrick MD is Attending Physician. snw 08:14 Triage completed. ss 08:15 Arm band placed on right wrist. ss 08:20 Madina Silva, RN is Primary Nurse. aa5 08:20 Patient has correct armband on for positive identification. Bed in low position. Call aa5 light in reach. Side rails up X 1. Adult w/ patient. 08:35 No provider procedures requiring assistance completed. aa5 08:38 EKG done, by headend technician. reviewed by Dallas Fitzpatrick MD. at1 08:57 X-ray completed. Portable x-ray completed in exam room. Patient tolerated procedure jb2 well. 08:57 XRAY Chest (1 view) In Process Unspecified. EDMS 09:16 Patient did not have IV access during this emergency room visit. aa5 Administered Medications: 08:28 Drug: Decadron 10 mg Route: IM; Site: right deltoid; aa5 09:16 Follow up: Response: No adverse reaction; Pain is decreased aa5 08:29 Drug: Demerol 25 mg Route: IM; Site: left deltoid; aa5 09:16 Follow up: Response: No adverse reaction; Pain is decreased aa5 Outcome: 09:03 Discharge ordered by . margi 09:16 Discharged to home ambulatory, with family. aa5 09:16 Condition: improved 09:16 Discharge instructions given to patient, Instructed on discharge instructions, follow up and referral plans. medication usage, Demonstrated understanding of instructions, follow-up care, medications, Prescriptions given X 3. 09:17 Patient left the ED. aa5 Signatures: Dispatcher [employer] EDMS Renetta Hills, DIGITAL CONTENT PRODUCER-C DIGITAL CONTENT PRODUCER-Csnchu RameyAnya mr EppsBoyd Roman, MD MD rn Calderon, Audri, RN RN aa5 Smirch, Shelby, RN RN ss Gonzales, Amanda, it security analyst EKG Tat1
--- NOTE | 2019-02-15 09:38 | RAD REPORT ---
EXAM DESCRIPTION: RAD - Chest Single View - 02/15/2019 9:00 am CLINICAL HISTORY: neck and back pain, rule out thoracic cause Chest pain. COMPARISON: No comparisons FINDINGS: Portable technique limits examination quality. The lungs are grossly clear. The heart is normal in size. No displaced fractures. IMPRESSION: No acute intrathoracic process suspected.
--- NOTE | 2019-02-15 12:02 | EKG ---
Test Date: 2019-02-15 Test Time: 08:35:42 Loan Review Manager: SHAHEEN MEASUREMENT RESULTS: Intervals: Rate: 68 [place]: 126 QRSD: 86 QT: 360 QTc: 382 [place]: P: 24 [place]: 126 QRS: 23 T: 25 INTERPRETIVE STATEMENTS: Normal sinus rhythm Normal ECG No previous ECG available for comparison Electronically Signed On 02-15-19 12:00:38 CDT by Steve Alcala
== END 2019-02-15 09:17 | disposition home or self-care (01) ==
LOC: ER 08:03
DX: M43.6 Torticollis (principal); M62.830 Muscle spasm of back
CPT/HCPCS: 71045; 93005; 96372; 99284; J1100; J2175

== ENCOUNTER 2019-08-11 08:01 | Emergency (ER) | payer SELFPAY ==
[2019-08-11] MEDS ORDERED: IBUPROFEN 400 MG TAB ONE (09:30)
[2019-08-11] MEDS ORDERED: IBUPROFEN 200 MG TAB PO ONE (09:30)
--- NOTE | 2019-08-11 10:29 | RAD REPORT ---
EXAM DESCRIPTION: RAD - Foot Left 3 View - 08/11/2019 8:48 am CLINICAL HISTORY: Left Foot pain FINDINGS: No fracture or dislocation is seen.
--- NOTE | 2019-08-11 10:44 | ER ---
Nurse's Notes [facility] Name: Sandra Gutierrez Age: 28 yrs Sex: Male : 1990 Arrival Date: 08/11/2019 Time: 08:04 Bed 20 Private MD: Diagnosis: Contusion of left lesser toe(s) without damage to nail Presentation: 08/11 08:20 Presenting complaint: Patient states: dropped a alisha on left foot, bruising noted to em left fourth and fifth toe. Transition of care: patient was not received from another setting of care. Onset of symptoms was August 11, 2019. Risk Assessment: Do you want to hurt yourself or someone else? Patient reports no desire to harm self or others. Initial Sepsis Screen: Does the patient meet any 2 criteria? No. Patient's initial sepsis screen is negative. Does the patient have a suspected source of infection? No. Patient's initial sepsis screen is negative. Care prior to arrival: None. 08:20 Method Of Arrival: Ambulatory em 08:21 Risk Assessment: Do you want to hurt yourself or someone else? Patient reports no tw2 desire to harm self or others. Initial Sepsis Screen: Does the patient meet any 2 criteria? No. Patient's initial sepsis screen is negative. Does the patient have a suspected source of infection? No. Patient's initial sepsis screen is negative. Care prior to arrival: None. 08:21 Acuity: CANDICE 4 tw2 Historical: - Allergies: 08:22 No Known Allergies; em - Home Meds: 08:22 None [Active]; em - PMHx: 08:22 None; em - PSHx: 08:22 Hernia repair; em - Immunization history:: Adult Immunizations. - Social history:: Smoking status: . - Ebola Screening: : Patient denies travel to an Ebola-affected area in the 21 days before illness onset. Screenin:20 Abuse screen: Denies threats or abuse. Nutritional screening: No deficits noted. tw2 Tuberculosis screening: No symptoms or risk factors identified. Fall Risk None identified. Assessment: 08:23 General: Appears in no apparent distress. comfortable, Behavior is calm, cooperative. em Pain: Complains of pain in left fourth toe and left fifth toe Pain currently is 8 out of 10 on a pain scale. Neuro: Level of Consciousness is awake, alert, obeys commands, Oriented to person, place, time, situation, Appropriate for age. Cardiovascular: Capillary refill < 3 seconds Patient's skin is warm and dry. Respiratory: Airway is patent Respiratory effort is even, unlabored, Respiratory pattern is regular, symmetrical. Derm: Skin is intact, is healthy with good turgor, Skin is pink, warm \T\ dry. Bruising that is dark purple, on left fourth toe and left fifth toe. Musculoskeletal: Capillary refill < 3 seconds, Range of motion: intact in all extremities. 09:30 Reassessment: Patient is alert/active/playful, equal unlabored respirations, skin em warm/dry/pink. request something for pain, provider notified, new medication orders received, pending x-ray results. Vital Signs: 08:22 BP 139 / 78; Pulse 76; Resp 18; Temp 98.1; Pulse Ox 97% on R/A; Weight 88.45 kg; Height em 5 ft. 4 in. (162.56 cm); Pain 8/10; 10:50 BP 128 / 81; Pulse 81; Resp 18; Pulse Ox 100% on R/A; Pain 5/10; em 08:22 Body Mass Index 33.47 (88.45 kg, 162.56 cm) em ED Course: 08:04 Patient arrived in ED. mr 08:15 Zachariah Borrego LVN is Primary Nurse. em 08:16 Jeff Rolle PA is PHCP. jmm 08:16 Reggie Gonsalez MD is Attending Physician. jmm 08:20 Arm band placed on. tw2 08:20 Bed in low position. Call light in reach. Adult w/ patient. tw2 08:21 Triage completed. tw2 08:48 Foot Left 3 View XRAY In Process Unspecified. EDMS 10:49 No provider procedures requiring assistance completed. Patient did not have IV access em during this emergency room visit. Administered Medications: 09:32 Drug: Motrin 600 mg Route: PO; em 10:21 Follow up: Response: No adverse reaction; Pain is decreased em Outcome: 10:44 Discharge ordered by . jmm 10:49 Discharged to home with crutches, with family. em 10:49 Condition: good 10:49 Discharge instructions given to patient, family, Instructed on discharge instructions, follow up and referral plans. medication usage, Demonstrated understanding of Prescriptions given X 1. 10:50 Patient left the ED. em Signatures: Dispatcher [employer] EDJeff Knight PA PA jmm Rivera, Mary mr Elmo, Zachariah, SENIOR INSIGHT MANAGER INTERNATIONAL SENIOR INSIGHT MANAGER INTERNATIONAL em Herlinda Barron, RN RN tw2
--- NOTE | 2019-08-11 10:45 | EDPHYS ---
Physician Documentation [facility] Name: Sandra Gutierrez Age: 28 yrs Sex: Male : 1990 Arrival Date: 08/11/2019 Time: 08:04 Bed 20 Private MD: ED Physician Reggie Gonsalez HPI: 08/11 08:40 This 28 yrs old Male presents to ER via Ambulatory with complaints of Toe jmm Injury. 08:40 The patient presents with an injury, pain. Onset: The symptoms/episode began/occurred jmm acutely, today. Modifying factors: The symptoms are alleviated by nothing, elevation of extremity. 08:40 Associated signs and symptoms: Pertinent positives: fever, Pertinent negatives: fever. jmm 08:40 The patient has not experienced similar symptoms in the past. This is a 28 year old jmm male with no chronic medical conditions that presents to the ED with complaints of left foot pain beginning after a car alisha fell on his foot. Patient denies other injury. . Historical: - Allergies: 08:22 No Known Allergies; em - Home Meds: 08:22 None [Active]; em - PMHx: 08:22 None; em - PSHx: 08:22 Hernia repair; em - Immunization history:: Adult Immunizations. - Social history:: Smoking status: . - Ebola Screening: : Patient denies travel to an Ebola-affected area in the 21 days before illness onset. ROS: 08:40 Constitutional: Negative for fever, chills, and weight loss, Cardiovascular: Negative jmm for chest pain, palpitations, and edema, Respiratory: Negative for shortness of breath, cough, wheezing, and pleuritic chest pain. 08:40 MS/extremity: Positive for injury or acute deformity, ecchymosis. 08:40 All other systems are negative. Exam: 08:40 Constitutional: This is a well developed, well nourished patient who is awake, alert, jmm and in no acute distress. Head/Face: atraumatic. Eyes: EOMI, no conjunctival erythema appreciated ENT: Moist Mucus Membranes Neck: Trachea midline, Supple Chest/axilla: Normal chest wall appearance and motion. Cardiovascular: Regular rate and rhythm. No edema appreciated Respiratory: Normal respirations, no respiratory distress appreciated Abdomen/GI: Non distended, soft Back: Normal ROM 08:40 Musculoskeletal/extremity: pain on palpation of the left 4th and 5th toes, < 2 sec dist cap refill, (+) NVI. 08:40 Skin: ecchymosis noted to the left 4th and 5th toes. 08:40 Neuro: Orientation: is normal, Mentation: is normal, Memory: is normal. 08:40 Psych: Behavior/mood is pleasant, cooperative. Vital Signs: 08:22 BP 139 / 78; Pulse 76; Resp 18; Temp 98.1; Pulse Ox 97% on R/A; Weight 88.45 kg; Height em 5 ft. 4 in. (162.56 cm); Pain 8/10; 10:50 BP 128 / 81; Pulse 81; Resp 18; Pulse Ox 100% on R/A; Pain 5/10; em 08:22 Body Mass Index 33.47 (88.45 kg, 162.56 cm) em MDM: 08:24 Patient medically screened. [facility] 10:43 Data reviewed: vital signs, nurses notes. Counseling: I had a detailed discussion with [facility] the patient and/or guardian regarding: the historical points, exam findings, and any diagnostic results supporting the discharge/admit diagnosis, radiology results, the need for outpatient follow up, to return to the emergency department if symptoms worsen or persist or if there are any questions or concerns that arise at home. 08/11 08:27 Order name: Foot Left 3 View XRAY; Complete Time: 11:03 [facility] 08/11 10:19 Order name: Maryc. Order; Complete Time: 10:22 [facility] 08/11 10:20 Order name: Maryc. Order: jacki tape; Complete Time: 10:22 [facility] Administered Medications: 09:32 Drug: Motrin 600 mg Route: PO; em 10:21 Follow up: Response: No adverse reaction; Pain is decreased em Disposition: 08/11/19 10:44 Discharged to Home. Impression: Contusion of left lesser toe(s) without damage to nail. - Condition is Stable. - Discharge Instructions: Foot Contusion. - Prescriptions for Ibuprofen 800 mg Oral Tablet - take 1 tablet by ORAL route every 8 hours As needed take with food; 30 tablet. - Medication Reconciliation Form, Thank You Letter, Antibiotic Education, Prescription Opioid Use form. - Follow up: Private Physician; When: 2 - 3 days; Reason: Recheck today's complaints, Continuance of care, Re-evaluation by your physician. Addendum: 08/13/2019 04:44 Co-signature as Attending Physician, Reggie Gonsalez MD. g s Signatures: Dispatcher [employer] Jeff Stephens PA PA jmm Munoz, Edgar, SANITARY [place] MACHINE TENDER SAN[employer]ARY [place] MACHINE TENDER em Herlinda Barron, RN RN tw2 Reggie Gonsalez MD MD Corrections: (The following items were deleted from the chart) 08/11 10:50 10:44 08/11/2019 10:44 Discharged to Home. Impression: Contusion of left lesser toe(s) em without damage to nail. Condition is Stable. Forms are Medication Reconciliation Form, Thank You Letter, Antibiotic Education, Prescription Opioid Use. Follow up: Private Physician; When: 2 - 3 days; Reason: Recheck today's complaints, Continuance of care, Re-evaluation by your physician. [facility] 11:22 08:40 The patient presents with an injury, pain, [facility]
[2019-08-11 10:55] VITALS: TEMP 98.1
[2019-08-11 10:57] VITALS: BP 128/81; O2SAT 100
== END 2019-08-11 10:50 | disposition home or self-care (01) ==
LOC: ER 08:01
DX: S90.122A Contusion of left lesser toe(s) without damage to nail, initial encounter (principal); W22.8XXA Striking against or struck by other objects, initial encounter; Y93.9 Activity, unspecified; Y92.9 Unspecified place or not applicable
CPT/HCPCS: 99283

== ENCOUNTER 2020-04-11 21:26 | Emergency (ER) | payer SELFPAY ==
[2020-04-11] MEDS ORDERED: NA CHLORIDE 0.9% 1,000 ML ONE (22:20)
[2020-04-11] MEDS ORDERED: ACETAMINOPHEN 500 MG TAB ONE (22:22)
[2020-04-11 22:26] LABS: Absolute Lymphocytes (CBC) 1.7 K/uL (0.7-4.9); Basophils % 0.5 % (0-1.3); Hematocrit 42.7 % (39.6-49.0); Lymphocytes % 16.2 % (15.3-44.8); MPV 9.3 fL (7.6-11.3); RBC Red Blood Cell Count 4.68 M/uL (4.33-5.43)
[2020-04-11 22:43] LABS: ALT/SGPT 155 U/L (12-78); AST/SGOT 88 U/L (15-37); Albumin 4.5 g/dL (3.4-5.0); Alkaline Phosphatase 76 U/L (45-117); BUN Blood Urea Nitrogen 11 mg/dL (7-18); Bicarbonate 28 mmol/L (21-32); Bilirubin Total 0.5 mg/dL (0.2-1.0); Glucose Level 97 mg/dL (74-106); Potassium 3.6 mmol/L (3.5-5.1); Protein, Total 8.5 g/dL (6.4-8.2); Sodium Level 137 mmol/L (136-145)
[2020-04-11 23:49] LABS: Urine Blood NEGATIVE (NEG); Urine Glucose NEGATIVE (NEG); Urine Protein NEGATIVE (NEG); Urine Specific Gravity 1.025 (1.005-1.030); Urine pH 6.5 (5.0-7.0)
--- NOTE | 2020-04-12 00:03 | ER ---
Nurse's Notes [facility] Name: Sandra Gutierrez Age: 29 yrs Sex: Male : 1990 Arrival Date: 04/11/2020 Time: 21:27 Bed 17 Private MD: Diagnosis: Other viral infections of unspecified site Presentation: 04/11 21:41 Chief complaint: Patient states: Fever, cough, SOB and diarrhea started today. Fever ll1 101 at home. Coronavirus screen: Surgical mask placed on patient. Patient moved to private room, placed in contact and droplet isolation with eye protection until further assessment. Patient reports a cough. Patient reports shortness of breath or difficulty breathing. Patient reports a measured and/or subjective temperature greater than 100.4F. Patient denies travel on a cruise ship or to a country the [facility] currently lists as an affected area. Patient denies contact with known and/or suspected case of COVID-19. Ebola Screen: Patient denies travel to an Ebola-affected area in the 21 days before illness onset. Initial Sepsis Screen: Does the patient meet any 2 criteria? Temp <36.0*C (96.8*F)) or > 38.3*C (100.9*F). HR > 90 bpm. Yes. Risk Assessment: Do you want to hurt yourself or someone else? Patient reports no desire to harm self or others. Onset of symptoms was April 11, 2020. 21:41 Method Of Arrival: Ambulatory ll1 21:41 Acuity: CANDICE 3 ll1 22:24 Initial Sepsis Screen: Does the patient have a suspected source of infection? Yes: ll1 Productive cough/pneumonia. Historical: - Allergies: 21:42 No Known Allergies; ll1 - PSHx: 21:42 Hernia repair; ll1 - Immunization history:: Adult Immunizations up to date. - Social history:: Smoking status: Patient denies any tobacco usage or history of. Patient uses alcohol, only on a social basis. "weekends". Patient/guardian denies using street drugs, tobacco products. Screenin:24 Abuse screen: Denies threats or abuse. Nutritional screening: No deficits noted. ll1 Tuberculosis screening: No symptoms or risk factors identified. Fall Risk IV access (20 points). Total Padilla Fall Scale indicates No Risk (0-24 pts). Assessment: 22:22 General: Appears in no apparent distress. Behavior is calm, cooperative, appropriate ll1 for age. Pain: Complains of pain in head Quality of pain is described as aching. Neuro: No deficits noted. Cardiovascular: No deficits noted. Respiratory: Reports shortness of breath cough that is Airway is patent Trachea midline Respiratory effort is even, unlabored, Respiratory pattern is regular, symmetrical, Breath sounds are clear bilaterally. Onset: The symptoms/episode began/occurred today, the patient has mild shortness of breath. GI: Abdomen is flat, Bowel sounds present X 4 quads. Abd is soft and non tender X 4 quads. Reports nausea. : No deficits noted. 23:14 Reassessment: Patient appears in no apparent distress at this time. No changes from ll1 previously documented assessment. Patient and/or family updated on plan of care and expected duration. Pain level reassessed. Patient is alert, oriented x 3, equal unlabored respirations, skin warm/dry/pink. 04/12 00:14 Reassessment: Patient appears in no apparent distress at this time. Patient and/or vc family updated on plan of care and expected duration. Pain level reassessed. Patient is alert, oriented x 3, equal unlabored respirations, skin warm/dry/pink. Patient states feeling better. Patient states symptoms have improved. Vital Signs: 04/11 21:41 BP 147 / 90; Pulse 120; Resp 18; Temp 102.7; Pulse Ox 97% ; ll1 22:45 BP 131 / 68; Pulse 122; Resp 18; Pulse Ox 95% ; ll1 23:13 BP 130 / 74; Pulse 119; Resp 18; Pulse Ox 97% on R/A; ll1 23:30 BP 123 / 71; Pulse 108; Resp 18; Temp 100.7; Pulse Ox 95% ; ll1 ED Course: 21:27 Patient arrived in ED. cf2 21:38 Jeff Rolle PA is PHCP. jmm 21:38 [place] Fitzpatrick MD is Attending Physician. jmm 21:42 Triage completed. ll1 21:42 Arm band placed on Patient placed in an exam room, on a stretcher. ll1 22:21 Flu Sent. ll1 22:22 COVID-19 Sent. ll1 22:23 Chest Single View XRAY In Process Unspecified. EDMS 22:42 Oretga Peterson, RN is Primary Nurse. 1 23:37 Report given to Suzie Devi RN. 1 04/12 00:13 No provider procedures requiring assistance completed. IV discontinued, intact, vc bleeding controlled, No redness/swelling at site. Pressure dressing applied. Administered Medications: 04/11 22:16 Drug: Tylenol 1000 mg Route: PO; ah 23:31 Follow up: Response: No adverse reaction; Temperature is decreased; RASS: Alert and ll1 Calm (0) 22:22 Drug: NS 0.9% 1000 ml Route: IV; Rate: 1 bolus; Site: right antecubital; ll1 23:13 Follow up: Response: No adverse reaction; IV Status: Completed infusion; IV Intake: ll1 1000ml Intake: 23:13 IV: 1000ml; Total: 1000ml. 1 Outcome: 04/12 00:02 Discharge ordered by . jaxon 00:13 Discharged to home ambulatory, with significant other. vc 00:13 Condition: good 00:13 Discharge instructions given to patient, significant other, Instructed on discharge instructions, follow up and referral plans. Demonstrated understanding of instructions, follow-up care, Remaining quarantined for 14 days or until receiving negative COVID-19 results. 00:14 Patient left the ED. vc Addendum: 04/16/2020 13:19 Addendum: Other pt notified of negative COVID-19 swab results. Pt advised to remain in d m5 isolation until fever free for 72 hours without medication. 04/18/2020 11:25 Addendum: Culture Results: Positive blood culture. Patient was not prescribed s s antibiotics at discharge. Report given to ELSIE for further evaluation and then to senior controls technician for follow up with patient. 11:39 Addendum: Other Recommendation by KAREN Giles to prescribe Augmentin 875 mg BID x 10 s s days if patient is continuing to have symptoms. Spoke with patient over the phone who reports he has no symptoms at this time and is feeling much better. Pt reports he has yet to follow up with his PCP, but verbalizes understanding importance of follow up care. Signatures: Dispatcher [employer] EDKS Meg Rosales RN RN dm5 Jeff Rolle PA PA jmm Smirch, Shelby, RN RN Brice Welch cf2 Suzie Madrigal RN RN Ananya Nieves, RN RN Ortega Peterson, RN RN ll1
--- NOTE | 2020-04-12 00:03 | EDPHYS ---
Physician Documentation [facility] Name: Sandra Gutierrez Age: 29 yrs Sex: Male : 1990 Arrival Date: 04/11/2020 Time: 21:27 Bed 17 Private MD: ED Physician [place] Fitzpatrick HPI: 04/11 22:05 This 29 yrs old Male presents to ER via Ambulatory with complaints of jmm Diarrhea, Cough, Shortness Of Breath, Fever. 22:05 The patient or guardian reports cough. Onset: The symptoms/episode began/occurred jmm today. Modifying factors: The symptoms are alleviated by nothing. the symptoms are aggravated by nothing. Associated signs and symptoms: Pertinent positives: fever. This is a 29 year old male with no chronic medical conditions that presents to the ED with complaints of cough, shortness of breath, body aches beginning earlier today. . Historical: - Allergies: 21:42 No Known Allergies; ll1 - PSHx: 21:42 Hernia repair; ll1 - Immunization history:: Adult Immunizations up to date. - Social history:: Smoking status: Patient denies any tobacco usage or history of. Patient uses alcohol, only on a social basis. "weekends". Patient/guardian denies using street drugs, tobacco products. ROS: 22:05 Constitutional: Positive for body aches, fever. jmm 22:05 Respiratory: Positive for cough. 22:05 All other systems are negative. Exam: 22:05 Constitutional: This is a well developed, well nourished patient who is awake, alert, jmm and in no acute distress. Head/Face: atraumatic. Eyes: EOMI, no conjunctival erythema appreciated ENT: Moist Mucus Membranes Neck: Trachea midline, Supple Chest/axilla: Normal chest wall appearance and motion. 22:05 Abdomen/GI: Non distended, soft Back: Normal ROM Skin: General appearance color normal MS/ Extremity: Moves all extremities, no obvious deformities appreciated, no edema noted to the lower extremities Neuro: Awake and alert, normal gait Psych: Behavior is normal, Mood is normal, Patient is cooperative and pleasant 22:05 Cardiovascular: Rate: tachycardic, Rhythm: regular. 22:05 Respiratory: the patient does not display signs of respiratory distress, Respirations: normal, Breath sounds: are clear throughout. Vital Signs: 21:41 BP 147 / 90; Pulse 120; Resp 18; Temp 102.7; Pulse Ox 97% ; ll1 22:45 BP 131 / 68; Pulse 122; Resp 18; Pulse Ox 95% ; ll1 23:13 BP 130 / 74; Pulse 119; Resp 18; Pulse Ox 97% on R/A; ll1 23:30 BP 123 / 71; Pulse 108; Resp 18; Temp 100.7; Pulse Ox 95% ; ll1 MDM: 21:42 Patient medically screened. [facility] 04/12 00:01 Data reviewed: vital signs, nurses notes. Counseling: I had a detailed discussion with jaxon the patient and/or guardian regarding: the historical points, exam findings, and any diagnostic results supporting the discharge/admit diagnosis, lab results, radiology results, the need for outpatient follow up, to return to the emergency department if symptoms worsen or persist or if there are any questions or concerns that arise at home. ED course: Patient is alert and non toxic in appearance in the ED. Patient shows no signs of resp distress. PUI for COVID-19. Patient is given strict return precautions. Patient understood and agrees with the plan of care. . 04/11 21:44 Order name: COVID-19 [facility] 04/11 21:44 Order name: Flu [facility] 04/11 21:44 Order name: Strep; Complete Time: 22:49 [facility] 04/11 21:44 Order name: CBC with Diff; Complete Time: 22:49 [facility] 04/11 21:44 Order name: CMP; Complete Time: 22:49 [facility] 04/11 21:44 Order name: Procalcitonin; Complete Time: 23:14 [facility] 04/11 21:44 Order name: Lactate; Complete Time: 23:14 [facility] 04/11 21:44 Order name: Blood Culture Adult (2) [facility] 04/11 21:44 Order name: Chest Single View XRAY [facility] 04/11 21:45 Order name: CORONAVIRUS [facility] 04/11 21:45 Order name: Influenza Screen (A ; Complete Time: 22:49 [facility] 04/11 22:42 Order name: Throat Culture [facility] 04/11 23:13 Order name: Urine Dipstick--Ancillary (enter results); Complete Time: 23:57 [facility] 04/11 21:44 Order name: Document PUI# [facility] 04/11 21:44 Order name: Droplet/Contact Precautions; Complete Time: 22:22 [facility] 04/11 21:44 Order name: Labs collected and sent; Complete Time: 22:22 [facility] 04/11 21:44 Order name: Notify Health Dept [phone]/ [facility] 04/11 21:44 Order name: O2 Per Protocol; Complete Time: 22:22 [facility] 04/11 21:44 Order name: Urine Dipstick-Ancillary (obtain specimen); Complete Time: 23:31 [facility] Administered Medications: 04/11 22:16 Drug: Tylenol 1000 mg Route: PO; 23:31 Follow up: Response: No adverse reaction; Temperature is decreased; RASS: Alert and ll1 Calm (0) 22:22 Drug: NS 0.9% 1000 ml Route: IV; Rate: 1 bolus; Site: right antecubital; ll1 23:13 Follow up: Response: No adverse reaction; IV Status: Completed infusion; IV Intake: ll1 1000ml Disposition: 04/12 00:17 Co-signature as Attending Physician, [place] Fitzpatrick MD. rn Disposition: 04/12/20 00:02 Discharged to Home. Impression: Other viral infections of unspecified site. - Condition is Stable. - Discharge Instructions: Viral Respiratory Infection. - Medication Reconciliation Form, Thank You Letter, Antibiotic Education, Prescription Opioid Use, Work release form form. - Follow up: Private Physician; When: 2 - 3 days; Reason: Recheck today's complaints, Continuance of care, Re-evaluation by your physician. Signatures: Dispatcher [employer] EDMS Jeff Rolle PA PA jmm Nieto, Roman, MD MD rn Calcote, Vanessa, RN RN Ananya Nieves, RN RN Ortega Xie RN RN ll1 Corrections: (The following items were deleted from the chart) 00:14 00:02 04/12/2020 00:02 Discharged to Home. Impression: Other viral infections of vc unspecified site. Condition is Stable. Forms are Medication Reconciliation Form, Thank You Letter, Antibiotic Education, Prescription Opioid Use. Follow up: Private Physician; When: 2 - 3 days; Reason: Recheck today's complaints, Continuance of care, Re-evaluation by your physician. [facility]
[2020-04-12 00:27] VITALS: BP 123/71; TEMP 100.7; O2SAT 95
--- NOTE | 2020-04-12 07:46 | RAD REPORT ---
EXAM DESCRIPTION: Grant Single View04/11/2020 10:21 pm CLINICAL HISTORY: Shortness of breath COMPARISON: 2019 FINDINGS: The lungs appear clear of acute infiltrate. The heart is normal size IMPRESSION: No acute abnormalities displayed
== END 2020-04-12 00:14 | disposition home or self-care (01) ==
LOC: ER 21:26
DX: B34.8 Other viral infections of unspecified site (principal); Z20.828 Contact with and (suspected) exposure to other viral communicable diseases
CPT/HCPCS: 36415; 71045; 80053; 81003; 83605; 84145; 85025; 87040; 87070; 87077; 87081; 87186; 87205; 87804; 96360; 99284; J7030; U0002

== ENCOUNTER 2020-12-21 20:26 | Emergency (ER) | payer SELFPAY ==
[2020-12-21] MEDS ORDERED: ACETAMINOPHEN 500 MG TAB ONE (20:48)
[2020-12-21 21:21] LABS: Absolute Lymphocytes (CBC) 3.5 K/uL (0.7-4.9); Basophils % 0.5 % (0-1.3); Hematocrit 43.7 % (39.6-49.0); Lymphocytes % 27.8 % (15.3-44.8); MPV 8.9 fL (7.6-11.3); RBC Red Blood Cell Count 4.82 M/uL (4.33-5.43)
[2020-12-21 21:30] LABS: ALT/SGPT 118 U/L (12-78); AST/SGOT 63 U/L (15-37); Alkaline Phosphatase 75 U/L (45-117); BUN Blood Urea Nitrogen 12 mg/dL (7-18); Bicarbonate 27 mmol/L (21-32); Bilirubin Total 0.2 mg/dL (0.2-1.0); Glucose Level 92 mg/dL (74-106); Potassium 3.4 mmol/L (3.5-5.1); Sodium Level 139 mmol/L (136-145)
[2020-12-21 21:31] LABS: Albumin 4.1 g/dL (3.4-5.0); Protein, Total 8.1 g/dL (6.4-8.2); Troponin (Emerg Dept Use Only) < 0.02 ng/mL (0.0-0.045)
--- NOTE | 2020-12-21 23:26 | ER ---
Nurse's Notes [facility] Name: Sandra Gutierrez Age: 30 yrs Sex: Male : 1990 Arrival Date: 12/21/2020 Time: 20:29 Bed 24 Private MD: Diagnosis: Chest pain, unspecified;Radicular Pain Presentation: 12/21 20:49 Chief complaint: Patient states: i have chest pain radiating down my arm started this mg2 eveing. Coronavirus screen: Client denies travel out of the [place] in the last 14 days. At this time, the client does not indicate any symptoms associated with coronavirus-19. Ebola Screen: No symptoms or risks identified at this time. Initial Sepsis Screen: Does the patient meet any 2 criteria? No. Patient's initial sepsis screen is negative. Does the patient have a suspected source of infection? No. Patient's initial sepsis screen is negative. Risk Assessment: Do you want to hurt yourself or someone else? Patient reports no desire to harm self or others. 20:49 Method Of Arrival: Ambulatory mg2 20:49 Acuity: CANDICE 3 mg2 22:24 Onset of symptoms was December 21, 2020. mg2 Historical: - Allergies: 20:51 No Known Allergies; mg2 - Home Meds: 20:51 None [Active]; mg2 - PMHx: 20:51 None; mg2 - PSHx: 20:51 Hernia repair; mg2 - Immunization history:: Flu vaccine status is unknown. - Social history:: Smoking status: unknown. Screenin:23 Abuse screen: Denies threats or abuse. Denies injuries from another. Nutritional mg2 screening: No deficits noted. Tuberculosis screening: No symptoms or risk factors identified. Fall Risk IV access (20 points). Assessment: 21:00 General: Appears in no apparent distress. comfortable, Behavior is calm, cooperative. mg2 Pain: Complains of pain in chest Pain radiates to left arm Pain began gradually, Is intermittent. Neuro: Cardiovascular: Capillary refill < 3 seconds Patient's skin is warm and dry. Respiratory: Airway is patent Respiratory effort is even, unlabored, Respiratory pattern is regular, symmetrical. GI: No signs and/or symptoms were reported involving the gastrointestinal system. : No signs and/or symptoms were reported regarding the genitourinary system. EENT: No signs and/or symptoms were reported regarding the EENT system. Derm: Skin is intact, is healthy with good turgor, Skin is pink, warm \T\ dry. normal. Musculoskeletal: Circulation, motion, and sensation intact. Capillary refill < 3 seconds. 23:20 Reassessment: Patient appears in no apparent distress at this time. Patient and/or mg2 family updated on plan of care and expected duration. Pain level reassessed. Patient is alert, oriented x 3, equal unlabored respirations, skin warm/dry/pink. 23:35 Reassessment: Patient denies pain at this time. mg2 Vital Signs: 20:50 BP 156 / 90; Pulse 92; Resp 18; Temp 98.9; Pulse Ox 100% on R/A; Weight 90.72 kg; mg2 Height 5 ft. 5 in. (165.10 cm); Pain 8/10; 23:20 BP 144 / 89; Pulse 79; Resp 18; Pulse Ox 100% on R/A; mg2 20:50 Body Mass Index 33.28 (90.72 kg, 165.10 cm) mg2 ED Course: 20:29 Patient arrived in ED. am4 20:33 Jeff Rolle PA is PHCP. [facility] 20:33 Rai Soliz MD is Attending Physician. [facility] 20:49 César Mistry, LOC is Primary Nurse. mg2 20:50 Triage completed. mg2 20:50 Arm band placed on. mg2 21:00 EKG done, by ED staff, reviewed by Rai Soliz MD. Inserted saline lock: 20 gauge in mg2 right antecubital area, using aseptic technique. Blood collected. Patient maintains SpO2 saturation greater than 95% on room air. 22:23 No provider procedures requiring assistance completed. mg2 22:24 Patient has correct armband on for positive identification. mid level business analyst on. Pulse mg2 ox on. NIBP on. Door closed. Warm blanket given. 22:25 US Extremity Venous Unilateral Ltd In Process Unspecified. EDMS 22:35 Ultrasound completed. Patient tolerated well. Notified METAL DRILLING MACHINE OPERATOR/KAREN powell. sg3 22:45 Thorax W/ Con In Process Unspecified. EDMS 23:35 IV discontinued, intact, bleeding controlled, No redness/swelling at site. Pressure mg2 dressing applied. Administered Medications: 23:17 Drug: Ketorolac 30 mg Route: IVP; Site: right antecubital; mg2 23:35 Follow up: Response: No adverse reaction; Marked relief of symptoms mg2 Outcome: 23:26 Discharge ordered by MD. coates 23:35 Discharged to home ambulatory. mg2 23:35 Condition: good 23:35 Discharge instructions given to patient, Instructed on discharge instructions, follow up and referral plans. medication usage, Demonstrated understanding of instructions, follow-up care, medications, Prescriptions given X 2. 23:36 Patient left the ED. mg2 Signatures: Dispatcher [employer] EDMS Jeff Rolle PA PA jmm Godinez, Sarah 3 César Mistry RN RN mg2 Leila Lopez am4 Corrections: (The following items were deleted from the chart) 20:51 20:49 Chief complaint: Patient states: i have chest pain mg2 mg2
--- NOTE | 2020-12-21 23:27 | EDPHYS ---
Physician Documentation [facility] Name: Sandra Gutierrez Age: 30 yrs Sex: Male : 1990 Arrival Date: 12/21/2020 Time: 20:29 Bed 24 Private MD: ED Physician Rai Soliz HPI: 12/21 20:38 This 30 yrs old Male presents to ER via Ambulatory with complaints of Chest jmm Pain, Arm Pain. 20:38 The patient or guardian complains of pain. Onset: The symptoms/episode began/occurred jmm acutely, today. Modifying factors: The symptoms are alleviated by nothing. the symptoms are aggravated by movement. Associated signs and symptoms: Pertinent positives: swelling, Pertinent negatives: fever. This is a 30 year old male with no chronic medical conditions that presents to the ED with complaints of left axillary swelling which radiates pain down his arm. Denies known injury. Patient states he was stung by a bee earlier today on the right side of the chest. . Historical: - Allergies: 20:51 No Known Allergies; mg2 - Home Meds: 20:51 None [Active]; mg2 - PMHx: 20:51 None; mg2 - PSHx: 20:51 Hernia repair; mg2 - Immunization history:: Flu vaccine status is unknown. - Social history:: Smoking status: unknown. ROS: 20:38 Constitutional: Negative for fever, chills, and weight loss. jmm 20:38 Cardiovascular: Positive for chest pain. 20:38 Respiratory: Negative for shortness of breath. 20:38 MS/extremity: Positive for pain. 20:38 All other systems are negative. Exam: 20:38 Constitutional: This is a well developed, well nourished patient who is awake, alert, jmm and in no acute distress. Head/Face: atraumatic. Eyes: EOMI, no conjunctival erythema appreciated ENT: Moist Mucus Membranes Neck: Trachea midline, Supple 20:38 Cardiovascular: Regular rate and rhythm. No edema appreciated Respiratory: Normal respirations, no respiratory distress appreciated Abdomen/GI: Non distended, soft Back: Normal ROM Skin: General appearance color normal 20:38 Chest/axilla: Axilla: swelling noted, ttp, non indurated. 20:38 Musculoskeletal/extremity: ROM: intact in all extremities, full radial pulse, compartments are soft, full concrete bucket unloader strength, NVI. 21:15 ECG was reviewed by the Attending Physician. [facility] Vital Signs: 20:50 BP 156 / 90; Pulse 92; Resp 18; Temp 98.9; Pulse Ox 100% on R/A; Weight 90.72 kg; mg2 Height 5 ft. 5 in. (165.10 cm); Pain 8/10; 23:20 BP 144 / 89; Pulse 79; Resp 18; Pulse Ox 100% on R/A; mg2 20:50 Body Mass Index 33.28 (90.72 kg, 165.10 cm) mg2 MDM: 20:38 Patient medically screened. [facility] 23:24 Data reviewed: vital signs, nurses notes. Counseling: I had a detailed discussion with [facility] the patient and/or guardian regarding: the historical points, exam findings, and any diagnostic results supporting the discharge/admit diagnosis, lab results, radiology results, the need for outpatient follow up, to return to the emergency department if symptoms worsen or persist or if there are any questions or concerns that arise at home. ED course: Imaging studies negative for an acute process. Patient is NVI, pain is most likely radicular. patient is advised to follow up with pcp and otherwise given strict return precautions. Patient understood and agrees with the plan of care. . 12/21 20:44 Order name: CBC with Diff; Complete Time: 21:29 [facility] 12/21 20:44 Order name: CMP; Complete Time: 21:32 [facility] 12/21 20:44 Order name: Troponin (emerg Dept Use Only); Complete Time: 21:32 [facility] 12/21 20:46 Order name: US Extremity Venous Unilateral Ltd [facility] 12/21 22:04 Order name: Thorax W/ Con [facility] 12/21 20:44 Order name: Saline Lock; Complete Time: 21:06 [facility] 12/21 20:47 Order name: EKG - Nurse/Tech; Complete Time: 21:06 [facility] EC:15 Rate is 84 beats/min. Rhythm is regular. QRS [place] is Normal. MA interval is normal. QRS jmm interval is normal. QT interval is normal. No Q waves. T waves are Normal. No ST changes noted. Reviewed by me. Administered Medications: 23:17 Drug: Ketorolac 30 mg Route: IVP; Site: right antecubital; mg2 23:35 Follow up: Response: No adverse reaction; Marked relief of symptoms mg2 Disposition: 12/22 06:54 Co-signature as Attending Physician, Rai Soliz MD. mh7 Disposition: 12/21/20 23:26 Discharged to Home. Impression: Chest pain, unspecified, Radicular Pain. - Condition is Stable. - Discharge Instructions: Nonspecific Chest Pain, Radicular Pain. - Prescriptions for Ultracet 37.5- 325 mg Oral Tablet - take 1 tablet by ORAL route every 6 hours - for up to 5 days; do not exceed 8 tablets per day.; 20 tablet. Medrol (Rickie) 4 mg Oral Tablets, Dose Pack - take 1 tablet by ORAL route as directed - follow package instructions; 1 packet. - Medication Reconciliation Form, Thank You Letter, Antibiotic Education, Prescription Opioid Use form. - Follow up: Private Physician; When: 2 - 3 days; Reason: Recheck today's complaints, Continuance of care, Re-evaluation by your physician. Signatures: Dispatcher [employer] [facility] Jeff Rolle PA PA jmm Gardose, Michele, LOC RN [facility] Rai Soliz MD MD 7 Corrections: (The following items were deleted from the chart) 12/21 22:04 20:44 Thorax W/ Con+CT.RAD.BRZ ordered. [facility] 23:36 23:26 12/21/2020 23:26 Discharged to Home. Impression: Chest pain, unspecified; mg2 Radicular Pain. Condition is Stable. Forms are Medication Reconciliation Form, Thank You Letter, Antibiotic Education, Prescription Opioid Use. Follow up: Private Physician; When: 2 - 3 days; Reason: Recheck today's complaints, Continuance of care, Re-evaluation by your physician. jaxon
[2020-12-21] MEDS ORDERED: KETOROLAC 30 MG/ML INJ ONE (23:36)
[2020-12-21 23:49] VITALS: TEMP 98.9; O2SAT 100
[2020-12-21 23:51] VITALS: BP 144/89
--- NOTE | 2020-12-22 07:36 | RAD REPORT ---
EXAM DESCRIPTION: US - Extremity Venous Uni Ltd - 12/21/2020 10:25 pm CLINICAL HISTORY: Left arm pain and swelling Preliminary findings were provided at time of the study. COMPARISON: None. TECHNIQUE: Real-time sonographic evaluation of the left upper extremity deep venous systems was perf ormed. FINDINGS: Normal compressibility, flow augmentation, phasic flow and spontaneous flow are identified in the left upper extremity deep venous system. No intraluminal filling defects seen. Internal jugul ar and subclavian veins are normal as well. IMPRESSION: No DVT in the left upper extremity.
--- NOTE | 2020-12-22 20:34 | RAD REPORT ---
EXAM DESCRIPTION: CT - Thorax W/ Con - 12/22/2020 6:05 am CLINICAL HISTORY: RIGHT AXILLARY SWELLING COMPARISON: None Available. TECHNIQUE: CT of the chest obtained following the uncomplicated intravenous administration of iodina don contrast. FINDINGS: Chest: Pulmonary arteries: No central filling defects. Thyroid: No abnormalities of the visualized thyroid. Great Vessels: Great vessels have normal anatomic configuration. Thoracic Aorta: No abnormalities of the thoracic aorta identified. Heart: No cardiomegaly, significant pericardial effusion, or coronary artery atherosclerosis Lymph Nodes: No enlarged mediastinal lymph nodes identified. Esophagus: No abnormalities of the esophagus identified. Other: Minimal residual thymus. Mild right gynecomastia. Indeterminate fat stranding in the left axil eyal region. Lungs: No airspace opacities identified. Pleura: No pleural effusion or pneumothorax. Trachea/Airways: No abnormalities of the visualized trachea or airways. Bones: No destructive osseous lesions. Upper Abdomen: Limited images of the upper abdomen demonstrate no definite abnormalities of visualize d portions of the gallbladder, pancreas, spleen, adrenal glands, or kidneys. Diffusely decreased de nsity of the liver. Tiny fat-containing left diaphragmatic Bochdalek hernia. IMPRESSION: 1. Mild edema in the right axillary region. Finding is nonspecific and may be related to infection, trauma, or other inflammatory change. 2. Hepatic steatosis. This exam was performed according to our departmental dose-optimization program, which includes autom ated exposure control, adjustment of the mA and/or kV according to patient size and/or use of iterati ve reconstruction technique. Electronically signed by: Segundo Whitaker 12/21/2020 11:03 PM SYSTEMS MGR Due to temporary technical issues with the PACS/Fluency reporting system, reports are being signed by the in house radiologists without review as a courtesy to insure prompt reporting. The interpreting radiologist is fully responsible for the content of the report.
== END 2020-12-21 23:36 | disposition home or self-care (01) ==
LOC: ER 20:26
DX: R07.9 Chest pain, unspecified (principal); M79.601 Pain in right arm
CPT/HCPCS: 36415; 71260; 80053; 84484; 85025; 93005; 93971; 96374; 99285; Q9967

== ENCOUNTER 2021-08-27 08:38 | Emergency (ER) | payer SELFPAY ==
--- NOTE | 2021-08-27 11:51 | ER ---
Nurse's Notes [facility] Name: Sandra Gutierrez Age: 30 yrs Sex: Male : 1990 Arrival Date: 08/27/2021 Time: 08:42 Bed 19 Private MD: Diagnosis: Acute upper respiratory infection, unspecified Presentation: 08/27 08:56 Chief complaint: Patient states: i have a really bad sore throat and cough for like 2 tw2 days. Coronavirus screen: congestion, cough unrelated to allergies, sore throat, Client presents with at least one sign or symptom that may indicate coronavirus-19. Standard/surgical mask placed on the client. Provider contacted for isolation considerations. Ebola Screen: Patient denies travel to an Ebola-affected area in the 21 days before illness onset. 08:56 Method Of Arrival: Ambulatory tw2 08:58 Initial Sepsis Screen: Does the patient meet any 2 criteria? No. Patient's initial tw2 sepsis screen is negative. Does the patient have a suspected source of infection? No. Patient's initial sepsis screen is negative. Risk Assessment: Do you want to hurt yourself or someone else? Patient reports no desire to harm self or others. Note provider BURAK Parker in triage room performing assessment at this time. Onset of symptoms was August 27, 2021. 08:58 Acuity: CANDICE 4 tw2 Triage Assessment: 08:57 General: Appears in no apparent distress. Behavior is calm, cooperative, appropriate tw2 for age. Pain: Complains of pain in uvula, left aspect of posterior pharynx and right aspect of posterior pharynx. EENT: Reports nasal congestion nasal discharge. Respiratory: Reports cough that is. Historical: - Allergies: 08:57 No Known Allergies; tw2 - Home Meds: 08:57 None [Active]; tw2 - PMHx: 08:57 None; tw2 - PSHx: 08:57 hernia repair; tw2 - Immunization history:: Client reports having NOT received the Covid vaccine. - Social history:: Smoking status: Patient denies any tobacco usage or history of. Screenin:05 Abuse screen: Denies threats or abuse. Nutritional screening: No deficits noted. tw2 Tuberculosis screening: No symptoms or risk factors identified. Fall Risk None identified. Assessment: 09:00 General: Appears in no apparent distress. comfortable, well groomed, well developed, sl2 Behavior is calm, cooperative. 09:00 Pain: Denies pain. Neuro: No deficits noted. Cardiovascular: No deficits noted. sl2 Respiratory: Reports cough that is non-productive, persistent Airway is patent Trachea midline Respiratory effort is even, unlabored, Respiratory pattern is regular, Denies shortness of breath labored breathing, pain with respiration, pain with cough, pain with movement, air hunger. GI: No deficits noted. : No deficits noted. EENT: Throat is reddened Reports sore throat. Derm: No deficits noted. Musculoskeletal: No deficits noted. 09:04 Respiratory: Airway is patent Respiratory effort is even, unlabored, n/a. EENT: Throat tw2 is reddened. 09:05 Reassessment: pt swabbed in triage after provider assessed and ordered swabs. tw2 11:36 Reassessment: Patient lying quietly in bed, shows no signs of acute distress, denies sl2 pain or discomfort, vital signs stable. Will continue to re-assess and monitor. Awaiting lab results for patient disposition. Pain: Denies pain. Vital Signs: 08:58 BP 132 / 66; Pulse 83; Resp 18; Temp 97.9(TE); Pulse Ox 97% on R/A; Weight 86.18 kg; tw2 Height 5 ft. 5 in. (165.10 cm); 10:00 BP 128 / 72; Pulse 80; Resp 18; Temp 97.8(O); Pulse Ox 98% on R/A; sl2 11:00 BP 126 / 70; Pulse 76; Resp 18; Temp 97.8; Pulse Ox 97% ; sl2 12:00 BP 122 / 68; Pulse 74; Resp 18; Temp 98.4(O); Pulse Ox 100% on R/A; sl2 08:58 Body Mass Index 31.62 (86.18 kg, 165.10 cm) tw2 ED Course: 08:42 Patient arrived in ED. mr 08:48 Mahogany Dominguez FNP-C [facility] kb 08:48 Dallas Fitzpatrick MD is Attending Physician. kb 08:59 Triage completed. tw2 08:59 Arm band placed on. tw2 09:02 Bed in low position. Call light in reach. tw2 09:57 Darya Silva, RN is Primary Nurse. 2 10:00 COVID swab sent to lab. Strep swab sent to lab. 5 10:00 No provider procedures requiring assistance completed. Patient did not have IV access sl2 during this emergency room visit. 10:01 Warm blanket given. Pulse ox on. NIBP on. mh5 11:35 Darya Silva, RN is Primary Nurse. 2 Administered Medications: No medications were administered Outcome: 11:50 Discharge ordered by MD. adkins 12:19 Discharged to home sl2 12:19 Condition: stable 12:19 Discharge instructions given to patient, Instructed on discharge instructions, follow up and referral plans. Demonstrated understanding of instructions, follow-up care. 12:20 Patient left the ED. 2 Signatures: Mahogany Dominguez, OLAP DEVELOPER-C OLAP DEVELOPER-Anya Santoro mr Herlinda Barron, RN RN [address] [facility] Darya Silva, RN RN 2
--- NOTE | 2021-08-27 11:51 | EDPHYS ---
Physician Documentation [facility] Name: Sandra Gutierrez Age: 30 yrs Sex: Male : 1990 Arrival Date: 08/27/2021 Time: 08:42 Bed 19 Private MD: ED Physician Dallas Fitzpatrick HPI: 08/27 10:00 This 30 yrs old Male presents to ER via Ambulatory with complaints of Sore kb Throat, Cough. 10:00 The patient or guardian reports cough, that is intermittent, described as mild. Onset: kb The symptoms/episode began/occurred 2 day(s) ago. Severity of symptoms: At their worst the symptoms were moderate, in the emergency department the symptoms are unchanged. Modifying factors: The symptoms are alleviated by nothing, the symptoms are aggravated by nothing. Associated signs and symptoms: Pertinent positives: rhinorrhea, sore throat, Pertinent negatives: chest pain, diarrhea, ear ache, fever, nausea, vomiting. The patient has not experienced similar symptoms in the past. The patient has not recently seen a physician. Pt reports cough, congestion, runny nose and sore throat for 2 days. . Historical: - Allergies: 08:57 No Known Allergies; tw2 - Home Meds: 08:57 None [Active]; tw2 - PMHx: 08:57 None; tw2 - PSHx: 08:57 hernia repair; tw2 - Immunization history:: Client reports having NOT received the Covid vaccine. - Social history:: Smoking status: Patient denies any tobacco usage or history of. ROS: 10:00 Constitutional: Negative for fever, chills, and weight loss. kb 10:00 ENT: Positive for rhinorrhea, sinus congestion, sore throat. 10:00 Respiratory: Positive for cough. 10:00 All other systems are negative. Exam: 10:00 Constitutional: This is a well developed, well nourished patient who is awake, alert, kb and in no acute distress. Head/Face: Normocephalic, atraumatic. ENT: Moist Mucous membranes Cardiovascular: Regular rate and rhythm with a normal S1 and S2. No gallops, murmurs, or rubs. No pulse deficits. Respiratory: Respirations even and unlabored. No increased work of breathing, no retractions or nasal flaring. Skin: Warm, dry with normal turgor. Normal color. MS/ Extremity: Pulses equal, no cyanosis. Neurovascular intact. Full, normal range of motion. Neuro: Awake and alert, GCS 15, oriented to person, place, time, and situation. Moves all extremities. Normal gait. Psych: Awake, alert, with orientation to person, place and time. Behavior, mood, and affect are within normal limits. Vital Signs: 08:58 BP 132 / 66; Pulse 83; Resp 18; Temp 97.9(TE); Pulse Ox 97% on R/A; Weight 86.18 kg; tw2 Height 5 ft. 5 in. (165.10 cm); 10:00 BP 128 / 72; Pulse 80; Resp 18; Temp 97.8(O); Pulse Ox 98% on R/A; sl2 11:00 BP 126 / 70; Pulse 76; Resp 18; Temp 97.8; Pulse Ox 97% ; sl2 12:00 BP 122 / 68; Pulse 74; Resp 18; Temp 98.4(O); Pulse Ox 100% on R/A; sl2 08:58 Body Mass Index 31.62 (86.18 kg, 165.10 cm) tw2 MDM: 08:59 Patient medically screened. kb 09:59 Data reviewed: vital signs, nurses notes. Data interpreted: Pulse oximetry: on room air kb is 97 %. Interpretation: normal. 11:49 Counseling: I had a detailed discussion with the patient and/or guardian regarding: the kb historical points, exam findings, and any diagnostic results supporting the discharge/admit diagnosis, lab results, the need for outpatient follow up, a family practitioner, to return to the emergency department if symptoms worsen or persist or if there are any questions or concerns that arise at home. 08/27 10:25 Order name: CORONAVIRUS EDHI 08/27 11:20 Order name: SARS-COV-2 RT PCR; Complete Time: 11:21 EDMS 08/27 11:49 Order name: Group A Streptococcus Rapid Sc; Complete Time: 11:49 EDMS Administered Medications: No medications were administered Disposition: 08/28 08:27 Co-signature as Attending Physician, Dallas Fitzpatrick MD I agree with the assessment and rn plan of care. Attestation: The patient's history, exam findings, diagnostics, and a summary of any interventions or procedures was reviewed in detail with Dallas Fitzpatrick MD. Disposition Summary: 08/27/21 11:50 Discharge Ordered Location: Home kb Condition: Stable kb Diagnosis - Acute upper respiratory infection, unspecified kb Followup: kb - With: Emergency Department - When: As needed - Reason: Worsening of condition Followup: kb - With: Private Physician - When: 2 - 3 days - Reason: Recheck today's complaints, Continuance of care, Re-evaluation by your physician Discharge Instructions: - Upper Respiratory Infection, Adult, [id number] kb - Viral Respiratory Infection, [id number] kb - Discharge Summary Sheet tw2 Forms: - Medication Reconciliation Form kb - Thank You Letter kb - Work release form tw2 - Antibiotic Education kb - Prescription Opioid Use kb Signatures: Dispatcher [employer] EDMS Mahogany Dominguez, ICE RESURFACING MACHINE OPERATORS-C ICE RESURFACING MACHINE OPERATORS-Dallas Dennis MD MD rn Herlinda Barron RN RN tw2
[2021-08-27 12:29] VITALS: BP 122/68; TEMP 98.4; O2SAT 100
== END 2021-08-27 12:20 | disposition home or self-care (01) ==
LOC: ER 08:38
DX: J06.9 Acute upper respiratory infection, unspecified (principal); Z20.822 Contact with and (suspected) exposure to COVID-19
CPT/HCPCS: 87070; 87081; 99283; U0003